=== PATIENT | male | born 1995 | race Caucasian/White ===

== ENCOUNTER 2022-03-24 22:02 | Emergency (ER) | payer OTHER, MEDICAID ==
[2022-03-24 23:19] LABS: HEMOGLOBIN 15.2 gm/dl (14.0-17.5); RED BLOOD COUNT 5.14 M/UL (4.20-5.50); WHITE BLOOD COUNT 9.4 K/UL (4.5-11.0)
[2022-03-24 23:38] LABS: BUN/CREATININE RATIO 11 (0-10)
[2022-03-25] MEDS ORDERED: AMOX TR-K CLV1 EAC4 PO (02:21)
== END 2022-03-25 02:19 | disposition home or self-care (01) ==
LOC: ER1 22:02
PROVIDERS: Student in an Organized Health Care Education/Training Program
DX: S06.0X9A Concussion with loss of consciousness of unspecified duration, initial encounter (principal); S00.83XA Contusion of other part of head, initial encounter; F17.210 Nicotine dependence, cigarettes, uncomplicated; V49.40XA Driver injured in collision with unspecified motor vehicles in traffic accident, initial encounter; Y92.410 Unspecified street and highway as the place of occurrence of the external cause
CPT/HCPCS: 70450; 71045; 71260; 72125; 80053; 85025; 99284; Q9967